=== PATIENT | male | born 1960 | race Caucasian/White ===

== ENCOUNTER 2019-09-27 06:27 | Day surgery (SDC) | payer MEDICARE, OTHER ==
[2019-09-27] MEDS ORDERED: LIDOCAINE-MPF 2% 5 ML VIAL MC ONE (06:28)
[2019-09-27] MEDS ORDERED: PROPOFOL 200 MG/20 ML BOTTLE IV ONE (06:28)
[2019-09-27] MEDS ORDERED: DESFLURANE ANESTHESIA GAS 240 ML BOTTLE IH ONE (06:28)
[2019-09-27] MEDS ORDERED: LIDOCAINE HCL-MPF 1% 5 ML VIAL ONE ×2 (08:08→09:09)
[2019-09-27] MEDS ORDERED: BUPIVACAINE 0.25% 30 ML VIAL ONE (08:08)
[2019-09-27] MEDS ORDERED: DEXAMETHASONE SOD PHOSPHATE 4 MG INJ ONE (08:08)
[2019-09-27] MEDS ORDERED: DEXAMETHASONE SOD PHOSPHATE 10 MG INJ ONE ×2 (09:09→09:10)
[2019-09-27] MEDS ORDERED: BUPIVACAINE HCL/DEX-WATER/PF 0.75%, 2 ML AMPUL ONE (09:10)
[2019-09-27] MEDS ORDERED: IOHEXOL-240 MG , 50 ML VIAL IV ONE (10:55)
== END 2019-09-27 10:40 | disposition home or self-care (01) ==
LOC: DS 06:27
PROVIDERS: ATTEND Anesthesiology Pain Medicine
DX: M54.16 Radiculopathy, lumbar region (principal); K21.9 Gastro-esophageal reflux disease without esophagitis; M19.90 Unspecified osteoarthritis, unspecified site; F41.9 Anxiety disorder, unspecified; F32.9 Major depressive disorder, single episode, unspecified; Z98.890 Other specified postprocedural states; Z79.899 Other long term (current) drug therapy; Z88.8 Allergy status to other drugs, medicaments and biological substances
CPT/HCPCS: 64483; 72100; J1100; J3490 ×5; J7120; A4663; Q9966